=== PATIENT | female | born 1995 | race Caucasian/White ===

== ENCOUNTER 2022-03-18 19:27 | Emergency (ER) | payer MEDICAID ==
[2022-03-18] MEDS ORDERED: Metoclopramide 10 MG/2 ML SDV IVPUSH STA (19:50)
[2022-03-18] MEDS ORDERED: Sodium Chloride 0.9% 1,000 ML IV STA (19:50)
[2022-03-18 20:42] LABS: CARBON DIOXIDE,CO2 24.7 mmol/L (21.0-32.0); POTASSIUM,K 3.5 mmol/L (3.5-5.1)
[2022-03-18] MEDS ORDERED: Cephalexin 500 MG Cap PO STA ×2 (21:06→21:08)
[2022-03-18 21:55] LABS: C. TRACHOMATIS BY PCR NOT DETECTED; N. GONORRHOEAE BY PCR NOT DETECTED
== END 2022-03-18 22:42 | disposition home or self-care (01) ==
LOC: MW.ED 19:27
DX: O23.41 Unspecified infection of urinary tract in pregnancy, first trimester (principal); O21.9 Vomiting of pregnancy, unspecified; O23.591 Infection of other part of genital tract in pregnancy, first trimester; N90.7 Vulvar cyst; Z3A.01 Less than 8 weeks gestation of pregnancy; Z79.899 Other long term (current) drug therapy
CPT/HCPCS: 36415; 76817; 80053; 81001; 84702; 85025; 87480; 87491; 87510; 87591; 87660; 96361; 96374; 99284; A9270; J2765; J7030

== ENCOUNTER 2022-04-04 10:52 | Emergency (ER) | payer MEDICAID ==
[2022-04-04] MEDS ORDERED: Ondansetron 4 MG/2 ML SDV IVPUSH ONE (11:36)
[2022-04-04] MEDS ORDERED: Promethazine 25 MG Tab PO STA (11:36)
[2022-04-04] MEDS ORDERED: Dextrose 5%-0.9% NaCl 1,000 ML IV SCH (11:45)
[2022-04-04 12:48] LABS: CARBON DIOXIDE,CO2 22.9 mmol/L (21.0-32.0); POTASSIUM,K 3.6 mmol/L (3.5-5.1)
[2022-04-04] MEDS ORDERED: metroNIDAZOLE 250 MG Tab PO ONE (12:52)
== END 2022-04-04 13:22 | disposition home or self-care (01) ==
LOC: MW.ED 10:52
DX: O23.41 Unspecified infection of urinary tract in pregnancy, first trimester (principal); N39.0 Urinary tract infection, site not specified; O21.9 Vomiting of pregnancy, unspecified; Z3A.08 8 weeks gestation of pregnancy
CPT/HCPCS: 36415; 80053; 81001; 82009; 83690; 83735; 84702; 85025; 96361; 96374; 99284; A9270; J2405; J7042

== ENCOUNTER 2022-05-16 10:36 | Emergency (ER) | payer MEDICAID ==
[2022-05-16] MEDS ORDERED: Sodium Chloride 0.9% 1,000 ML IV ONE (11:07)
[2022-05-16 11:57] LABS: CORONAVIRUS COVID-19 NAA NEGATIVE (NEGATIVE); INFLUENZA A NAA NEGATIVE (NEGATIVE); INFLUENZA B NAA NEGATIVE (NEGATIVE); RESPIRATORY SYNCYTIAL VIR NAA NEGATIVE (NEGATIVE)
[2022-05-16 12:05] LABS: POTASSIUM,K 3.5 mmol/L (3.5-5.1)
== END 2022-05-16 13:51 | disposition home or self-care (01) ==
LOC: MW.ED 10:36
DX: O23.42 Unspecified infection of urinary tract in pregnancy, second trimester (principal); N39.0 Urinary tract infection, site not specified; O99.012 Anemia complicating pregnancy, second trimester; D64.9 Anemia, unspecified; Z3A.17 17 weeks gestation of pregnancy; Z20.822 Contact with and (suspected) exposure to COVID-19
CPT/HCPCS: 0241U; 36415; 80053; 81001; 85025; 87086; 93005; 96360; 99285; J7030; 93010; 99284

== ENCOUNTER 2022-11-08 11:13 | Inpatient (IN) | payer MEDICAID, OTHER ==
[2022-11-08] MEDS: Lactated Ringers 1,000 ML IV SCH ×2 (10:55→12:01)
[~2022-11-08 11:13] MED LIST: Acetaminophen/oxyCODONE 325-5 MG Tab PO PRN; Albuterol 0.083% 2.5 MG/3 ML Neb Soln NEB PRN; HYDROmorphone 1 MG/ML Syringe IVPUSH PRN; Metoclopramide 10 MG/2 ML SDV IVPUSH PRN; Morphine 2 MG/ML SYRINGE IVPUSH PRN; Naloxone 0.4 MG/ML SDV IVPUSH PRN; Ondansetron 4 MG/2 ML SDV IVPUSH PRN; diphenhydrAMINE 50 MG/ML SDV IVPUSH PRN; droPERidol 5 MG/2 ML SDV IVPUSH PRN; ePHEDrine 50 MG/ML SDV IVPUSH PRN; fentaNYL 100 MCG/2 ML SDV IVPUSH PRN; fentaNYL 50 MCG/ML SDV IVPUSH PRN
[2022-11-08] MEDS ORDERED: Ketorolac 30 MG/ML SDV ONE (11:32)
[2022-11-08] MEDS ORDERED: ceFAZolin 1 GM Vial ONE (11:32)
[2022-11-08] MEDS ORDERED: fentaNYL 100 MCG/2 ML SDV ONE (11:32)
[2022-11-08] MEDS ORDERED: Lidocaine 2% 5 ML SDV ONE (11:32)
[2022-11-08] MEDS ORDERED: droPERidol 5 MG/2 ML SDV ONE (11:32)
[2022-11-08] MEDS ORDERED: Ropivacaine 0.5% 5 MG/ML 30 ML SDV ONE (11:32)
[2022-11-08] MEDS ORDERED: Dexamethasone 4 MG/ML 5 ML MDV ONE (11:32)
[2022-11-08] MEDS ORDERED: Ondansetron 4 MG/2 ML SDV ONE (11:32)
[2022-11-08] MEDS ORDERED: Oxytocin 10 Units/1 ML SDV ONE ×3 (11:32→12:44)
[2022-11-08] MEDS ORDERED: Phenylephrine 1% 10 MG/ML SDV ONE (11:32)
[2022-11-08] MEDS ORDERED: Morphine PF 10 MG/10 ML SDV ONE (11:33)
[2022-11-08] MEDS ORDERED: Citric Acid/Sodium Citrate Solution 30 ML Cup PO ONE (11:50)
[2022-11-08] MEDS ORDERED: Sodium Chloride 0.9% 20 ML SDV IV PRN (11:50)
[2022-11-08] MEDS ORDERED: Sodium Chloride 0.9% 2.5 ML Syringe FLUSH PRN (11:50)
[2022-11-08] MEDS ORDERED: Oxytocin/0.9 % Sodium Chloride 30 UNIT/500 ML BAG IV SCH ×2 (12:00→13:45)
[2022-11-08] MEDS ORDERED: Water For Injection, Sterile 20 ML ONE (12:02)
[2022-11-08 12:18] LABS: HEMATOCRIT 35.3 % (36.0-46.0); MEAN CORPUSCULAR HEMOGLOBIN 19.4 pg (27.0-32.0); MEAN CORPUSCULAR HGB CONC 31.2 g/dL (31.0-37.0); MEAN CORPUSCULAR VOLUME 62.1 fL (80.0-98.0); NRBC ABSOLUTE 0 K/uL; NRBC PERCENT 0.3 /100WBC; RED BLOOD CELL COUNT 5.68 M/uL (4.30-5.90); WHITE BLOOD CELL COUNT,WBC 7.38 K/uL (4.0-11.0)
[2022-11-08 13:26] LABS: PLATELET COUNT,PLT 236 K/uL (150-400)
[2022-11-08] MEDS ORDERED: Ondansetron 4 MG/2 ML SDV IVPUSH PRN (13:32)
[2022-11-08] MEDS ORDERED: Misoprostol 200 MCG Tab RECTAL PRN (13:32)
[2022-11-08] MEDS ORDERED: Acetaminophen/oxyCODONE 325-5 MG Tab PO PRN ×2 (13:32)
[2022-11-08] MEDS ORDERED: Oxytocin 10 Units/1 ML SDV IM PRN (13:32)
[2022-11-08] MEDS ORDERED: Methylergonovine 0.2 MG/1 ML Amp IM PRN (13:32)
[2022-11-08] MEDS ORDERED: Bisacodyl 10 MG Supp RECTAL PRN (13:32)
[2022-11-08] MEDS ORDERED: Lanolin 100% Cream 7 GM Tube TOP PRN (13:32)
[2022-11-08] MEDS ORDERED: diphenhydrAMINE 50 MG/ML SDV IVPUSH PRN (13:32)
[2022-11-08] MEDS ORDERED: Lactated Ringers 1,000 ML IV SCH (13:45)
[2022-11-08] MEDS: Ketorolac 30 MG/ML SDV IVPUSH SCH (19:48)
[2022-11-08] MEDS: Sodium Chloride 0.9% 10 ML Syringe FLUSH PRN (19:51)
[2022-11-08] MEDS: Docusate Sodium 100 MG Cap PO SCH (21:00)
[2022-11-09] MEDS: Ketorolac 30 MG/ML SDV IVPUSH SCH ×4 (02:00→15:17)
[2022-11-09 06:02] LABS: HEMATOCRIT 30.1 % (36.0-46.0); HEMOGLOBIN 9.3 g/dL (12.0-16.0)
[2022-11-09] MEDS: Sodium Chloride 0.9% 10 ML Syringe FLUSH PRN (06:34)
[2022-11-09] MEDS: Docusate Sodium 100 MG Cap PO SCH ×2 (08:08→21:07)
[2022-11-10] MEDS: Ibuprofen 800 MG Tab PO PRN ×2 (04:33→13:24)
[2022-11-10] MEDS: Docusate Sodium 100 MG Cap PO SCH (09:12)
== END 2022-11-10 14:22 | disposition home or self-care (01) | DRG 788 ==
LOC: MW.OB 11:13
PROVIDERS: ADMIT Obstetrics & Gynecology Obstetrics; ATTEND Obstetrics & Gynecology Obstetrics
PROC: 10D00Z1 Extraction of Products of Conception, Low, Open Approach (ICD-10-PCS; principal; 2022-11-08)
DX: O34.211 Maternal care for low transverse scar from previous cesarean delivery (principal); Z37.0 Single live birth; Z3A.39 39 weeks gestation of pregnancy; Z87.81 Personal history of (healed) traumatic fracture; Z90.89 Acquired absence of other organs
CPT/HCPCS: 01961; 36415; 64488; 85014; 85018; 85027; 86592; 86850; 86900; 86901; A9270-GY; J0131; J0690; J1100; J1200; J1790; J1885; J2274; J2371; J2405; J2590; J2795; J3010; J3490; J7120